=== PATIENT | female | born 2005 | race Caucasian/White ===

== ENCOUNTER 2025-04-30 16:49 | Emergency (ER) | payer BC, OTHER, SELFPAY ==
[2025-04-30 16:52] VITALS: BP 136/86
[2025-04-30 17:35] LABS: Hematocrit 39.6 % (37.0-47.0); Hemoglobin 13.5 g/dL (12.0-16.0); Mean Corp Hgb Conc. 34.1 g/dL (33.0-37.0); Mean Corpuscular Volume 89.4 fL (81.0-99.0); Nucleated Red Blood Cells % 0 %; Platelet Count 305 10^3/uL (130-400); Red Cell Dist. Width 13.2 % (11.5-14.5)
[2025-04-30 17:59] LABS: ALT (SGPT) 33 U/L (0-35); AST (SGOT) 24 U/L (14-36); Albumin 4.5 g/dl (3.5-5.0); Alkaline Phosphatase 124 U/L (38-126); Blood Urea Nitrogen 14 mg/dl (7-17); Calcium 9.6 mg/dl (8.4-10.2); Carbon Dioxide 23 mmol/L (22-30); Chloride 104 mmol/L (98-107); Glucose 87 mg/dl (70-99); Lipase 114 U/L (23-300); Potassium 4.6 mmol/L (3.5-5.1); Sodium 137 mmol/L (135-145); Total Protein 7.1 g/dl (6.3-8.2); eGFR > 60.00
[2025-04-30 18:11] LABS: Beta HCG Quantitative 198.99 mIU/ml
--- NOTE | 2025-04-30 18:42 | ED.GENMED ---
History of Present Illness
General
Chief Complaint: Abdominal Symptoms
Source: patient
Exam Limitations: none
Time Seen by Provider: 04/30/25 18:25
Nursing documentation reviewed up to this point in time: agreed with
History of Present Illness
History of Present Illness:
19-year-old female presents emergency department due to left upper quadrant pain and left lower quadrant abdominal pain. She tested positive for and was told by urgent care to come to the emergency department.
Past History
Past History
ED Past Medical History: None
ED Past Surgical History:
Social History
Tobacco: Non-smoker
Alcohol: None
Personal: Other
Living: with family
Employment: Other
Family History
Family History: Other
Review of Systems
Review of Systems
Allergies reviewed?: Yes
All Other Systems: Not applicable
Constitutional: Reports no symptoms
EENT: Reports no symptoms
Respiratory: Reports no symptoms
Cardiac: Reports no symptoms
ABD/GI: Reports abdominal pain
: Reports no symptoms
Musculoskeletal: Reports no symptoms
Skin: Reports no symptoms
Neurological: Reports no symptoms
Endocrine: Reports no symptoms
Hematologic/Lymphatic: Reports no symptoms
Psychiatric: Reports no symptoms
Phy Exam
Physical Exam
Physical Exam:
Physical Exam
General: no apparent distress, not acutely ill
Neck: supple. no meningeal signs. normal posterior pharynx
Heart: s1/s2 regular rate and rhythm, no murmur. equal radial
pulses.
HEENT: Pupils equal round reactive to light, EOMI
Lungs: no acute respiratory distress. clear bilaterally
Abdomen: normal bowel sounds. not tender. no CVAT
Neuro: alert and oriented. no focal neurological deficits cranial nerves II through XII intact
Skin: no rash
Psychiatric: well kept. interactive and cooperative
Extremities: no edema. no calf tenderness. negative homans. good distal pulses
Course
Orders/Labs/Results
Orders:
Orders
04/30/25 16:57
IV Insert/Care/Rem.- Treatment PRN
04/30/25 17:07
Type And Crossmatch [Type+Screen] Urgent
Complete Blood Count/With Diff Urgent
Comprehensive Metabolic Panel Urgent
HCG,SERUM [Beta HCG Quantitative] Urgent
Is this a screen?: No
Comment: the patient had a postive blood test at urgent care.
Lipase Urgent
04/30/25 18:41
US Pelvis W Transvag Combined Urgent
Comment:
Reason For Exam: vaginal bleed, pelvic pain,
Abnormal Lab Results
04/30/25
17:07
Absolute Neuts (auto) 6.9 H 10^3/uL
(1.4-6.5)
04/30/25 17:07
04/30/25 17:07
Vital Signs
Initial and Last Documented VS:
Initial Vital Signs
Temp Pulse Resp BP Pulse Ox
98.7 F 96 18 136/86 100
04/30/25 16:52 04/30/25 16:52 04/30/25 16:52 04/30/25 16:52 04/30/25 16:52
Last Documented Vital Signs
Temp Pulse Resp BP Pulse Ox
99.0 F 82 18 122/63 98
04/30/25 19:07 04/30/25 20:49 04/30/25 20:49 04/30/25 20:49 04/30/25 20:49
MDM/Problems Addressed
Differential Diagnosis Includes:
Ectopic ovarian cyst early
MDM/Problems Addressed:
19-year-old female with early no signs of ectopic right hemorrhagic ovarian cyst. Patient is G2, P1. She is likely 2 weeks . Possible miscarriage versus ectopic versus early . Stable for follow-up with
[employer] for repeat hCG
*Radiology
Radiology exam reviewed: radiology read reviewed (Ultrasound shows no signs of IUP or ectopic right hemorrhagic ovarian cyst)
*Pulse Oximetry
SaO2: 100
Oxygen Mode of Delivery: Room air
Patient hypoxic: no
*Critical Care Note
Total Time (30-74mins, 75-104mins- exclusive of procedures): Not Applicable
Patient Management
Social determinants of health affecting care: Living situation and Strong social support
Escalation/DeEscalation of care consider admission/obs:
Admit not indicated
ED Attending Note
-
Portions of this chart may have been created with voice recognition software.� Occasional wrong word or��sound alike� substitutions may have occurred due to the inherent limitations of voice recognition software.
Discharge Plan
Departure
Patient Disposition: Home (Routine Discharge)
Patient with high blood pressure during this ER visit?: Yes
Condition: Good
Discharge Problem:
Early stage of , Hemorrhagic cyst of right ovary
Instructions: Ovarian cyst - ED (DC), hCG blood test
Prescriptions:
No Action
ferrous sulfate [Iron (ferrous sulfate)] 325 mg (65 mg iron) Tablet
1 mg PO Q OTHER DAY
Referrals:
Tan Martin MD [Family Provider, Internal Medicine]
Debora Hoyos DO [Active, Gynecology] - Call in 1-3 days for appt
Activity Restrictions/Additional Instructions:
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 Return for any concerns.
Interventions
Interventions:
*General Assessment Last Done: 04/30/25 19:07
*Neglect/Abuse Screening Last Done: 04/30/25 19:07
*ED COVID-19 Vaccine History Last Done: 04/30/25 16:52
*ED Influenza Vaccine History Last Done: 04/30/25 16:52
[facility] Risk Assessment Tool Last Done: 04/30/25 19:06
*Risk Screen - Suicide (C-SSRS) Last Done: 04/30/25 16:52
*Nursing Disposition Last Done: 04/30/25 22:27
[facility]-Fzyxqh-Xrjaqhuvex Assessment Last Done: 04/30/25 20:30
Discharge Date and Time
Discharge Date/Time: 04/30/25 22:28
Print Language: LITHUANIAN
[2025-04-30 19:06] VITALS: BMI 28.4
[2025-04-30 19:07] VITALS: BP 122/76
[2025-04-30 20:49] VITALS: BP 122/63
== END 2025-04-30 22:28 | disposition home or self-care (01) ==
LOC: EMR 16:49
PROVIDERS: Emergency Medicine; EMERGENCY PHYSICIAN Emergency Medicine; FAMILY PHYSICIAN Internal Medicine
DX: O20.9 Hemorrhage in early pregnancy, unspecified (principal); N83.201 Unspecified ovarian cyst, right side; O34.219 Maternal care for unspecified type scar from previous cesarean delivery; Z3A.01 Less than 8 weeks gestation of pregnancy
CPT/HCPCS: 99284; 76830; 76856; 80053; 83690; 84702; 85025; 86850; 86900; 86901